=== PATIENT | male | born 2000 | race Caucasian/White ===

== ENCOUNTER 2020-08-31 08:26 | Outpatient (REF) | payer MEDICAID, SELFPAY | END 2020-08-31 08:27 | disposition home or self-care (01) | LOC: HO.WFDLDS 08:26 | PROVIDERS: Visit Provider Internal Medicine | DX: Z20.828 Contact with and (suspected) exposure to other viral communicable diseases (principal) | CPT/HCPCS: 36415; C9803; U0003 ==